=== PATIENT | female | born 1975 | race Caucasian/White ===

== ENCOUNTER 2020-02-05 07:48 | Emergency (ER) | payer OTHER, SELFPAY ==
[2020-02-05 09:14] VITALS: BP 174/98; PULSE 87; RESP 20; TEMP 37.1; O2SAT 100; BMI 28.3
--- NOTE | 2020-02-05 09:35 | ED.EYEPROB ---
HPI - Eye Problem General Chief complaint: Eye Problems Stated complaint: hit in the with piece of metal from trash Time Seen by Provider: 02/05/20 09:11 Source: patient Mode of arrival: ambulatory Limitations: no limitations History of Present Illness HPI Narrative: Patient reports she was hit with a small metal rubi while opening hamper. Reports this happened 2 days ago and symptoms are improving. Reports she has redness. Denies any changes in vision or blurry vision. Denies any other symptoms complaints or concerns at this time. Reports she is not up-to-date on her tetanus vaccine. Related Data Previous Rx's Medication Instructions Recorded erythromycin 0.5 inch OPHTHALMIC (EYE) TID #3.5 02/05/20 g naproxen 500 mg PO BID PRN #10 tab 02/05/20 Allergies Allergy/AdvReac Type Severity Reaction Status Date / Time No Known Allergies Allergy Unverified 12/04/19 15:21 Review of Systems Review of Systems: Constitutional : No Fever, No Chills Eyes: + Eye Pain, No Swelling, + Redness, No Foreign Body, No Discharge, No Vision Changes Skin : No Skin Lesions, No rash Neuro : No Weakness, No Numbness, No Paresthesias, No Loss of Consciousness, No Dizziness, No Headache Yes all other systems are reviewed and are negative [facility] Past Medical History Attestation statement: The following information was validated with the patient. Medical History Anxiety Social History Social History Advance Directives: No Advance Directives Information Provided: Yes Physical Exam Vital Signs: Vital Signs: Last Vital Signs Temp 98.7 F 02/05/20 09:14 Pulse 87 02/05/20 09:14 Resp 20 02/05/20 09:14 BP 174/98 H 02/05/20 09:14 Pulse Ox 100 02/05/20 09:14 Body Mass Index 28.3 vital signs have been reviewed as normal and appeared to be correct. Blood pressure normal. Heart rate normal. Respiration rate normal. Temperature normal. Oxygen saturation normal. Appearance: Alert. Oriented X3. No acute distress. Head: Normal external exam. Normocephalic. Atraumatic. No Garcia signs noted. No raccoon eyes noted Eyes: PERRLA. EOMI. Conjunctiva to right eye medial aspect c mild erythema. Left conjunctiva within normal limits. Cornea are normal. Funduscopic exam within normal limits. Sclera normal. Eyelids normal. No papilledema noted. Anterior chamber normal. No photophobia noted. See nurse's notes for visual acuity. Fluorescein exam no uptake to left eye. Small abrasion to medial aspect of left eye. No foreign bodies noted. ENT: Pharynx normal. Uvula midline. Moist mucous membranes. Neck: Normal inspection. Neck supple. FROM. No adenopathy. No meningeal signs. CVS: Normal heart rate and rhythm. Heart sound normal. No murmurs noted. Pulses normal throughout. Respiratory: No respiratory distress. Painless inspiration. Breath sounds normal. Back: Full range of motion noted. Skin: Skin warm and dry. Normal skin color. Normal skin turgor. No rashes/lesions/lacerations noted. Extremities: Extremities exhibit normal range of motion. Neuro: Oriented X 3. No motor deficit. No sensory deficit. Reflexes normal. Course Course Course Narrative: Patient with small abrasion to left eye medial aspect. No foreign bodies noted. Will place on erythromycin. Update the patient's tetanus at this time. DC home with symptomatic treatment and erythromycin eye ointment along referral to Dr. Carrillo clerk telegraph service and to return if any new or worsening symptoms. Patient understands agrees with this plan. Discharge Plan Discharge Clinical Impression: Corneal abrasion, Subconjunctival hemorrhage Patient Disposition: Home, Self-Care Instructions: Diphtheria/Tetanus Vaccine (By injection), Subconjunctival Hemorrhage (ED), Corneal Abrasion (ED) Prescriptions: New naproxen 500 mg tablet 500 mg PO BID PRN (Reason: pain) Qty: 10 RF: 0 erythromycin 5 mg/gram (0.5 %) ointment 0.5 inch ophthalmic (eye) TID Qty: 3.5 RF: 0 Referrals: Low Carrillo [Physician] - 1 day Stand Alone Forms: Work/School Release Print Language: Brazilian
[2020-02-05] MEDS: Erythromycin Base 0.5% Oph Oin 1 GM TUBE 1 CM EYE-LEFT (09:44)
== END 2020-02-05 09:52 | disposition home or self-care (01) ==
PROVIDERS: Emergency Provider Emergency Medicine
DX: S00.212A Abrasion of left eyelid and periocular area, initial encounter (principal); H57.12 Ocular pain, left eye; H11.32 Conjunctival hemorrhage, left eye; Y28.9XXA Contact with unspecified sharp object, undetermined intent, initial encounter; Y93.9 Activity, unspecified; Y92.009 Unspecified place in unspecified non-institutional (private) residence as the place of occurrence of the external cause; Y99.9 Unspecified external cause status; Z79.899 Other long term (current) drug therapy; Z23 Encounter for immunization
CPT/HCPCS: 90471; 90715; 99283; 99284